=== PATIENT | female | born 1945 | race Two or more races ===

== ENCOUNTER → 2017-06-02 | Outpatient (CLI) | payer MEDICARE, MEDICAID ==
[~2017-06-02] VITALS: Ht 146.1 cm; Wt 55.5 kg
[~2017-06-02] MED LIST: ASPI-556 PO; CALC1TAB90 PO; CARV25 PO; DIGO125T71 PO; FISH OIL 1,2001 CA1 PO; FURO40TA5 PO; GABA-318 PO; GLIM2TAB3 PO; METF500T4 PO; PANT40TA25 PO; POTA8TAB4 PO; ROSU40 PO; SPIR25TA4 PO; VALS160T2 GT; VITAD400 PO; [UNRECOGNIZED DRUG - CODE] OP
[2017-06-02 13:27] VITALS: BP 144/66
== END | disposition home or self-care (01) ==
LOC: SRCNTR 13:14
PROVIDERS: ATTEND Internal Medicine Clinical Cardiac Electrophysiology
DX: Z45.02 Encounter for adjustment and management of automatic implantable cardiac defibrillator (principal); I11.0 Hypertensive heart disease with heart failure; I50.9 Heart failure, unspecified; E78.5 Hyperlipidemia, unspecified; E11.9 Type 2 diabetes mellitus without complications; Z79.82 Long term (current) use of aspirin
CPT/HCPCS: G0463

== ENCOUNTER → 2017-06-06 | Outpatient (CLI) | payer MEDICARE, MEDICAID ==
[~2017-06-06] VITALS: Ht 144.8 cm; Wt 54.8 kg
[2017-06-06 11:16] VITALS: BP 153/53
== END | disposition home or self-care (01) ==
LOC: SRCNTR 09:56
PROVIDERS: ATTEND Internal Medicine Clinical Cardiac Electrophysiology
DX: Z09 Encounter for follow-up examination after completed treatment for conditions other than malignant neoplasm (principal); Z95.810 Presence of automatic (implantable) cardiac defibrillator
CPT/HCPCS: G0463

== ENCOUNTER → 2017-06-13 | Outpatient (CLI) | payer MEDICARE, MEDICAID ==
[~2017-06-13] VITALS: Ht 144.8 cm; Wt 55.0 kg
[2017-06-13 10:37] VITALS: BP 123/59
== END | disposition home or self-care (01) ==
LOC: SRCNTR 10:35
PROVIDERS: ATTEND Internal Medicine Clinical Cardiac Electrophysiology
DX: Z09 Encounter for follow-up examination after completed treatment for conditions other than malignant neoplasm (principal); Z95.810 Presence of automatic (implantable) cardiac defibrillator
CPT/HCPCS: G0463

== ENCOUNTER → 2017-06-20 | Outpatient (CLI) | payer MEDICARE, MEDICAID, OTHER ==
[~2017-06-20] VITALS: Ht 144.8 cm; Wt 54.5 kg
[~2017-06-20] MED LIST changes: +ALEN70TA48 PO; +ATOR40TA28 PO; +CARV6 PO; +FERG325 PO; +LINA5TAB PO; +METF10002 PO; +OMEP20 PO; +SACU1TAB PO; +VITAD1000 PO
[2017-06-20 14:32] VITALS: BP 142/57
== END | disposition home or self-care (01) ==
LOC: SRCNTR 14:25
PROVIDERS: ATTEND Internal Medicine Clinical Cardiac Electrophysiology
DX: Z09 Encounter for follow-up examination after completed treatment for conditions other than malignant neoplasm (principal); E11.9 Type 2 diabetes mellitus without complications; E78.00 Pure hypercholesterolemia, unspecified; I10 Essential (primary) hypertension; Z79.82 Long term (current) use of aspirin; Z95.0 Presence of cardiac pacemaker; Z98.890 Other specified postprocedural states
CPT/HCPCS: G0463

== ENCOUNTER → 2017-06-27 | Outpatient (CLI) | payer MEDICARE, OTHER ==
[~2017-06-27] VITALS: Ht 144.8 cm; Wt 54.5 kg
[~2017-06-27] MED LIST changes: -CARV25 PO; -DIGO125T71 PO; -GLIM2TAB3 PO; -METF500T4 PO; -PANT40TA25 PO; -POTA8TAB4 PO; -ROSU40 PO; -VALS160T2 GT; -VITAD400 PO; -[UNRECOGNIZED DRUG - CODE] OP
[2017-06-27 14:02] VITALS: BP 121/58
== END | disposition home or self-care (01) ==
LOC: SRCNTR 13:45
PROVIDERS: ATTEND Internal Medicine Clinical Cardiac Electrophysiology
DX: Z09 Encounter for follow-up examination after completed treatment for conditions other than malignant neoplasm (principal); Z95.810 Presence of automatic (implantable) cardiac defibrillator
CPT/HCPCS: G0463

== ENCOUNTER → 2017-07-11 | Outpatient (CLI) | payer MEDICARE, OTHER ==
[~2017-07-11] VITALS: Ht 144.8 cm; Wt 54.0 kg
[2017-07-11 10:56] VITALS: BP 140/66
== END | disposition home or self-care (01) ==
LOC: SRCNTR 10:38
PROVIDERS: ATTEND Internal Medicine Clinical Cardiac Electrophysiology
DX: Z45.02 Encounter for adjustment and management of automatic implantable cardiac defibrillator (principal); I11.0 Hypertensive heart disease with heart failure; I50.9 Heart failure, unspecified; E78.5 Hyperlipidemia, unspecified; E11.9 Type 2 diabetes mellitus without complications; Z90.49 Acquired absence of other specified parts of digestive tract
CPT/HCPCS: 93289; G0463; 93288

== ENCOUNTER → 2017-07-18 | Outpatient (CLI) | payer MEDICARE, OTHER ==
[2017-07-18 13:58] VITALS: BP 110/60
== END | disposition home or self-care (01) ==
LOC: SRCNTR 13:48
PROVIDERS: ATTEND Internal Medicine Clinical Cardiac Electrophysiology
DX: Z09 Encounter for follow-up examination after completed treatment for conditions other than malignant neoplasm (principal); I11.0 Hypertensive heart disease with heart failure; I50.9 Heart failure, unspecified; E11.9 Type 2 diabetes mellitus without complications; E78.5 Hyperlipidemia, unspecified; Z95.810 Presence of automatic (implantable) cardiac defibrillator
CPT/HCPCS: G0463

== ENCOUNTER → 2017-07-31 | Outpatient (CLI) | payer MEDICARE, OTHER ==
[2017-07-31 09:11] LABS: BASOPHILS # (AUTO) 0.03 K/uL (0.00-0.20); BASOPHILS % (AUTO) 0.5 % (0.0-2.0); EOSINOPHILS # (AUTO) 0.09 K/uL (0.00-0.70); EOSINOPHILS % (AUTO) 1.32 % (1.0-6.0); HEMATOCRIT 37.1 % (36-46); HEMOGLOBIN 12.4 g/dL (12.0-16.0); LYMPHOCYTES # (AUTO) 2.4 K/uL (1.0-4.8); LYMPHOCYTES % (AUTO) 34.3 % (22.0-44.0); MEAN CORPUSCULAR HEMOGLOBIN 32.2 pg (26.0-34.0); MEAN CORPUSCULAR HGB CONC 33.4 G/dL (31.0-37.0); MEAN CORPUSCULAR VOLUME 97 fL (80-100); MONOCYTES # (AUTO) 0.7 K/uL (0.1-1.0); NEUTROPHILS # (AUTO) 3.7 K/uL (1.8-7.7); NEUTROPHILS % (AUTO) 53.9 % (40.0-70.0); PLATELET COUNT (AUTO) 210 K/uL (150-450); RED BLOOD CELL COUNT(AUTO) 3.84 MIL/uL (4.00-5.20)
[2017-07-31 09:26] LABS: ALANINE AMINOTRANSFERASE 26 U/L (12-78); ALBUMIN 3.9 g/dL (3.4-5.0); ALKALINE PHOSPHATASE 45 U/L (46-116); ANION GAP 4 mmol/L (8-16); ASPARTATE AMINOTRANSFERASE 19 U/L (15-37); BILIRUBIN,TOTAL 0.3 mg/dL (0.1-1.0); CALCIUM, TOTAL 8.5 mg/dL (8.8-10.5); CARBON DIOXIDE 30 mmol/L (22-29); CHLORIDE 104 mmol/L (98-107); CHOL/HDL RATIO 2.8 (3.9-5.7); CHOLESTEROL 128 mg/dL (131-200); CREATININE 0.86 mg/dL (0.60-1.30); GLOMERULAR FILTR. RATE CALC > 60 mL/min (>60); GLUCOSE,RANDOM 108 mg/dL (70-110); HDL CHOLESTEROL 45 mg/dL (40-60); LDL CHOL (CALC.) 65 mg/dL (0-130); POTASSIUM 4.6 mmol/L (3.5-5.1); SODIUM SERUM 138 mmol/L (136-145); TOTAL PROTEIN, SERUM 7.3 g/dL (6.4-8.2); TRIGLYCERIDES 92 mg/dL (15-150); UREA NITROGEN, BLOOD 13 mg/dL (7-18)
== END | disposition home or self-care (01) ==
LOC: LABPV 08:26
PROVIDERS: ATTEND Internal Medicine Cardiovascular Disease
DX: I11.0 Hypertensive heart disease with heart failure (principal); I50.9 Heart failure, unspecified; E11.65 Type 2 diabetes mellitus with hyperglycemia; E55.9 Vitamin D deficiency, unspecified

== ENCOUNTER → 2017-08-15 | Outpatient (CLI) | payer MEDICARE, OTHER ==
[~2017-08-15] VITALS: Ht 144.8 cm; Wt 68.0 kg
[2017-08-15 14:22] VITALS: BP 111/52
== END | disposition home or self-care (01) ==
LOC: SRCNTR 14:10
PROVIDERS: ATTEND Internal Medicine Clinical Cardiac Electrophysiology
DX: I11.0 Hypertensive heart disease with heart failure (principal); I50.9 Heart failure, unspecified; E11.9 Type 2 diabetes mellitus without complications; E78.5 Hyperlipidemia, unspecified; Z79.82 Long term (current) use of aspirin; Z95.810 Presence of automatic (implantable) cardiac defibrillator
CPT/HCPCS: 93288; G0463

== ENCOUNTER → 2018-01-25 | Outpatient (CLI) | payer MEDICARE, OTHER ==
[~2018-01-25] MED LIST changes: -METF10002 PO; +METF10004 PO
[2018-01-25 11:25] LABS: BASOPHILS % (AUTO) 0.3 % (0.0-2.0); EOSINOPHILS % (AUTO) 1.6 % (1.0-6.0); HEMATOCRIT 37.7 % (36-46); HEMOGLOBIN 12.8 g/dL (12.0-16.0); LYMPHOCYTES # (AUTO) 2.7 K/uL (1.0-4.8); LYMPHOCYTES % (AUTO) 35.8 % (22.0-44.0); MEAN CORPUSCULAR HEMOGLOBIN 31.4 pg (26.0-34.0); MEAN CORPUSCULAR HGB CONC 33.9 G/dL (31.0-37.0); MEAN CORPUSCULAR VOLUME 93 fL (80-100); MONOCYTES # (AUTO) 0.8 K/uL (0.1-1.0); NEUTROPHILS # (AUTO) 3.9 K/uL (1.8-7.7); NEUTROPHILS % (AUTO) 52.3 % (40.0-70.0); PLATELET COUNT (AUTO) 202 K/uL (150-450); RED BLOOD CELL COUNT(AUTO) 4.07 MIL/uL (4.00-5.20); RED CELL DISTRIBUTION WIDTH 14.1 % (11.5-14.5)
[2018-01-25 11:49] LABS: CHOL/HDL RATIO 3.1 (3.9-5.7); CREATININE 1.12 mg/dL (0.60-1.30); POTASSIUM 4.9 mmol/L (3.5-5.1); TOTAL PROTEIN, SERUM 7.8 g/dL (6.4-8.2)
[2018-01-25 12:08] LABS: BILIRUBIN,TOTAL 0.4 mg/dL (0.1-1.0)
== END | disposition home or self-care (01) ==
LOC: LABPV 09:48
PROVIDERS: ATTEND Internal Medicine Cardiovascular Disease
DX: I11.0 Hypertensive heart disease with heart failure (principal); I50.9 Heart failure, unspecified; E11.8 Type 2 diabetes mellitus with unspecified complications; E55.9 Vitamin D deficiency, unspecified

== ENCOUNTER → 2018-05-23 | Outpatient (CLI) | payer MEDICARE, OTHER ==
[~2018-05-23] MED LIST changes: -SPIR25TA4 PO; +SPIR25TA6 PO
[2018-05-23 10:03] LABS: BASOPHILS % (AUTO) 0.6 % (0.0-2.0); EOSINOPHILS % (AUTO) 1.8 % (1.0-6.0); HEMATOCRIT 36.8 % (36-46); HEMOGLOBIN 12.2 g/dL (12.0-16.0); LYMPHOCYTES # (AUTO) 2.3 K/uL (1.0-4.8); LYMPHOCYTES % (AUTO) 36.2 % (22.0-44.0); MEAN CORPUSCULAR HEMOGLOBIN 30.6 pg (26.0-34.0); MEAN CORPUSCULAR VOLUME 93 fL (80-100); MONOCYTES # (AUTO) 0.9 K/uL (0.1-1.0); MONOCYTES % (AUTO) 13.6 % (2.0-9.0); NEUTROPHILS % (AUTO) 47.8 % (40.0-70.0); PLATELET COUNT (AUTO) 211 K/uL (150-450); RED BLOOD CELL COUNT(AUTO) 3.97 MIL/uL (4.00-5.20)
[2018-05-23 10:26] LABS: ALBUMIN 3.7 g/dL (3.4-5.0); BILIRUBIN,TOTAL 0.4 mg/dL (0.1-1.0); CALCIUM, TOTAL 8.7 mg/dL (8.8-10.5); CHOL/HDL RATIO 3.5 (3.9-5.7); CREATININE 1.11 mg/dL (0.60-1.30); FREE T4 (FREE THYROXINE) 0.91 ng/dL (0.76-1.46); MAGNESIUM 2.5 mg/dL (1.80-2.40); POTASSIUM 5.1 mmol/L (3.5-5.1); THYROID STIMULATING HORMONE 1.05 uIU/mL (0.36-3.74); TOTAL PROTEIN, SERUM 7.5 g/dL (6.4-8.2)
[2018-05-23 10:32] LABS: HEMOGLOBIN A1C 6.7 % (4.5-6.2)
== END | disposition home or self-care (01) ==
LOC: LABPV 08:47
PROVIDERS: ATTEND Internal Medicine Cardiovascular Disease
DX: I11.0 Hypertensive heart disease with heart failure (principal); E11.8 Type 2 diabetes mellitus with unspecified complications; I50.9 Heart failure, unspecified; E55.9 Vitamin D deficiency, unspecified; D56.5 Hemoglobin E-beta thalassemia
CPT/HCPCS: 82306; 83036; 83735; 84439; 84443

== ENCOUNTER → 2018-08-14 | Outpatient (CLI) | payer MEDICARE, OTHER ==
[~2018-08-14] VITALS: Ht 144.8 cm; Wt 56.5 kg
[~2018-08-14] MED LIST changes: +METF-446 PO; -METF10004 PO
[2018-08-14 10:36] VITALS: BP 138/60
== END | disposition home or self-care (01) ==
LOC: SRCNTR 10:25
PROVIDERS: ATTEND Internal Medicine Clinical Cardiac Electrophysiology
DX: Z09 Encounter for follow-up examination after completed treatment for conditions other than malignant neoplasm (principal); I11.0 Hypertensive heart disease with heart failure; I50.9 Heart failure, unspecified; E78.5 Hyperlipidemia, unspecified; E11.9 Type 2 diabetes mellitus without complications; E78.00 Pure hypercholesterolemia, unspecified
CPT/HCPCS: G0463

== ENCOUNTER → 2018-08-28 | Outpatient (CLI) | payer MEDICARE, OTHER ==
[2018-08-28 10:57] LABS: BASOPHILS % (AUTO) 0.5 % (0.0-2.0); EOSINOPHILS % (AUTO) 1.6 % (1.0-6.0); HEMATOCRIT 36.7 % (36-46); HEMOGLOBIN 12.5 g/dL (12.0-16.0); LYMPHOCYTES # (AUTO) 2.3 K/uL (1.0-4.8); LYMPHOCYTES % (AUTO) 34.1 % (22.0-44.0); MEAN CORPUSCULAR HEMOGLOBIN 30.6 pg (26.0-34.0); MEAN CORPUSCULAR HGB CONC 33.9 G/dL (31.0-37.0); MEAN CORPUSCULAR VOLUME 90 fL (80-100); MONOCYTES # (AUTO) 0.7 K/uL (0.1-1.0); MONOCYTES % (AUTO) 9.9 % (2.0-9.0); NEUTROPHILS # (AUTO) 3.7 K/uL (1.8-7.7); NEUTROPHILS % (AUTO) 53.9 % (40.0-70.0); PLATELET COUNT (AUTO) 215 K/uL (150-450); RED BLOOD CELL COUNT(AUTO) 4.07 MIL/uL (4.00-5.20); RED CELL DISTRIBUTION WIDTH 14.8 % (11.5-14.5)
[2018-08-28 11:19] LABS: BILIRUBIN,TOTAL 0.3 mg/dL (0.1-1.0); CALCIUM, TOTAL 8.1 mg/dL (8.8-10.5); CHOL/HDL RATIO 2.9 (3.9-5.7); CREATININE 0.96 mg/dL (0.60-1.30); FREE T4 (FREE THYROXINE) 0.96 ng/dL (0.76-1.46); MAGNESIUM 2.2 mg/dL (1.80-2.40); POTASSIUM 4.5 mmol/L (3.5-5.1); THYROID STIMULATING HORMONE 0.58 uIU/mL (0.36-3.74); TOTAL PROTEIN, SERUM 7.6 g/dL (6.4-8.2)
[2018-08-28 11:23] LABS: HEMOGLOBIN A1C 6.5 % (4.5-6.2)
== END | disposition home or self-care (01) ==
LOC: LABPV 09:12
PROVIDERS: ATTEND Internal Medicine Cardiovascular Disease
DX: E55.9 Vitamin D deficiency, unspecified (principal); D56.5 Hemoglobin E-beta thalassemia; I11.0 Hypertensive heart disease with heart failure; I50.9 Heart failure, unspecified; E11.8 Type 2 diabetes mellitus with unspecified complications
CPT/HCPCS: 82306; 83036; 83735; 84439; 84443

== ENCOUNTER → 2018-12-31 | Outpatient (CLI) | payer MEDICARE, OTHER ==
[~2018-12-31] MED LIST changes: +ALEN70TA10 PO; -ALEN70TA48 PO; -GABA-318 PO; +GABA600T10 PO
[2018-12-31 10:13] LABS: POTASSIUM 4.3 mmol/L (3.5-5.1)
== END | disposition home or self-care (01) ==
LOC: LABPV 08:34
PROVIDERS: ATTEND Internal Medicine
DX: R25.2 Cramp and spasm (principal)
CPT/HCPCS: 83735; 84132

== ENCOUNTER → 2019-04-08 | Outpatient (CLI) | payer MEDICARE, OTHER ==
[2019-04-08 10:46] LABS: BASOPHILS % (AUTO) 0.5 % (0.0-2.0); EOSINOPHILS % (AUTO) 1.5 % (1.0-6.0); HEMATOCRIT 36.7 % (36-46); LYMPHOCYTES # (AUTO) 1.8 K/uL (1.0-4.8); LYMPHOCYTES % (AUTO) 28.2 % (22.0-44.0); MEAN CORPUSCULAR HEMOGLOBIN 30.6 pg (26.0-34.0); MEAN CORPUSCULAR HGB CONC 32.8 G/dL (31.0-37.0); MEAN CORPUSCULAR VOLUME 93 fL (80-100); MONOCYTES # (AUTO) 0.8 K/uL (0.1-1.0); MONOCYTES % (AUTO) 12.4 % (2.0-9.0); NEUTROPHILS # (AUTO) 3.6 K/uL (1.8-7.7); NEUTROPHILS % (AUTO) 57.4 % (40.0-70.0); PLATELET COUNT (AUTO) 199 K/uL (150-450); RED BLOOD CELL COUNT(AUTO) 3.94 MIL/uL (4.00-5.20); RED CELL DISTRIBUTION WIDTH 14.6 % (11.5-14.5)
[2019-04-08 11:10] LABS: ALBUMIN 3.7 g/dL (3.4-5.0); BILIRUBIN,TOTAL 0.5 mg/dL (0.1-1.0); CALCIUM, TOTAL 8.5 mg/dL (8.8-10.5); CHOL/HDL RATIO 3.4 (3.9-5.7); FREE T4 (FREE THYROXINE) 0.95 ng/dL (0.76-1.46); MAGNESIUM 2.2 mg/dL (1.80-2.40); POTASSIUM 4.5 mmol/L (3.5-5.1); THYROID STIMULATING HORMONE 0.54 uIU/mL (0.36-3.74); TOTAL PROTEIN, SERUM 7.4 g/dL (6.4-8.2)
[2019-04-08 11:15] LABS: HEMOGLOBIN A1C 6.5 % (4.5-6.2)
== END | disposition home or self-care (01) ==
LOC: LABPV 09:15
PROVIDERS: ATTEND Internal Medicine Cardiovascular Disease
DX: E55.9 Vitamin D deficiency, unspecified (principal); I11.0 Hypertensive heart disease with heart failure; I50.9 Heart failure, unspecified; D56.5 Hemoglobin E-beta thalassemia; E11.8 Type 2 diabetes mellitus with unspecified complications
CPT/HCPCS: 82306; 83036; 83735; 84439; 84443

== ENCOUNTER → 2019-07-09 | Outpatient (CLI) | payer MEDICARE, OTHER ==
[~2019-07-09] MED LIST changes: +CHOL100018 PO; -VITAD1000 PO
[2019-07-09 09:43] LABS: BASOPHILS % (AUTO) 0.6 % (0.0-2.0); EOSINOPHILS % (AUTO) 1.7 % (1.0-6.0); HEMATOCRIT 36.7 % (36-46); HEMOGLOBIN 12.3 g/dL (12.0-16.0); LYMPHOCYTES # (AUTO) 1.8 K/uL (1.0-4.8); LYMPHOCYTES % (AUTO) 33.1 % (22.0-44.0); MEAN CORPUSCULAR HEMOGLOBIN 30.1 pg (26.0-34.0); MEAN CORPUSCULAR HGB CONC 33.4 G/dL (31.0-37.0); MEAN CORPUSCULAR VOLUME 90 fL (80-100); MONOCYTES # (AUTO) 0.5 K/uL (0.1-1.0); MONOCYTES % (AUTO) 9.5 % (2.0-9.0); NEUTROPHILS # (AUTO) 3.1 K/uL (1.8-7.7); NEUTROPHILS % (AUTO) 55.1 % (40.0-70.0); PLATELET COUNT (AUTO) 212 K/uL (150-450); RED BLOOD CELL COUNT(AUTO) 4.08 MIL/uL (4.00-5.20); RED CELL DISTRIBUTION WIDTH 14.9 % (11.5-14.5)
[2019-07-09 09:52] LABS: HEMOGLOBIN A1C 6.9 % (4.5-6.2)
[2019-07-09 10:02] LABS: ALANINE AMINOTRANSFERASE 24 U/L (12-78); ALBUMIN 3.9 g/dL (3.4-5.0); ALKALINE PHOSPHATASE 52 U/L (46-116); ANION GAP 6 mmol/L (8-16); ASPARTATE AMINOTRANSFERASE 24 U/L (15-37); BILIRUBIN,TOTAL 0.5 mg/dL (0.1-1.0); CALCIUM, TOTAL 8.5 mg/dL (8.8-10.5); CARBON DIOXIDE 29 mmol/L (22-29); CHLORIDE 104 mmol/L (98-107); CHOLESTEROL 143 mg/dL (131-200); CREATININE 0.91 mg/dL (0.60-1.30); FREE T4 (FREE THYROXINE) 1.13 ng/dL (0.76-1.46); GLUCOSE,RANDOM 88 mg/dL (70-110); HDL CHOLESTEROL 47 mg/dL (40-60); LDL CHOL (CALC.) 78 mg/dL (0-130); POTASSIUM 4.3 mmol/L (3.5-5.1); SODIUM SERUM 139 mmol/L (136-145); THYROID STIMULATING HORMONE 0.99 uIU/mL (0.36-3.74); TOTAL PROTEIN, SERUM 7.5 g/dL (6.4-8.2); TRIGLYCERIDES 92 mg/dL (15-150); UREA NITROGEN, BLOOD 16 mg/dL (7-18)
[2019-07-09 10:05] LABS: GLOMERULAR FILTR. RATE CALC > 60 mL/min (>60)
== END | disposition home or self-care (01) ==
LOC: LABPV 08:41
PROVIDERS: ATTEND Internal Medicine Cardiovascular Disease
DX: E55.9 Vitamin D deficiency, unspecified (principal); I11.0 Hypertensive heart disease with heart failure; I50.9 Heart failure, unspecified; E11.8 Type 2 diabetes mellitus with unspecified complications; D56.5 Hemoglobin E-beta thalassemia
CPT/HCPCS: 82306; 83036; 83735; 84439; 84443

== ENCOUNTER → 2020-05-14 | Outpatient (CLI) | payer MEDICARE, OTHER ==
[~2020-05-14] MED LIST changes: -ALEN70TA10 PO; +ALEN70TA65 PO
[2020-05-14 10:13] LABS: BASOPHILS % (AUTO) 0.6 % (0.0-2.0); EOSINOPHILS % (AUTO) 1.9 % (1.0-6.0); HEMATOCRIT 32.1 % (36-46); HEMOGLOBIN 10.7 g/dL (12.0-16.0); LYMPHOCYTES # (AUTO) 2.2 K/uL (1.0-4.8); LYMPHOCYTES % (AUTO) 41.2 % (22.0-44.0); MEAN CORPUSCULAR HEMOGLOBIN 28.5 pg (26.0-34.0); MEAN CORPUSCULAR HGB CONC 33.3 G/dL (31.0-37.0); MEAN CORPUSCULAR VOLUME 85 fL (80-100); MONOCYTES # (AUTO) 0.7 K/uL (0.1-1.0); MONOCYTES % (AUTO) 12.8 % (2.0-9.0); NEUTROPHILS # (AUTO) 2.4 K/uL (1.8-7.7); NEUTROPHILS % (AUTO) 43.5 % (40.0-70.0); PLATELET COUNT (AUTO) 203 K/uL (150-450); RED BLOOD CELL COUNT(AUTO) 3.77 MIL/uL (4.00-5.20); RED CELL DISTRIBUTION WIDTH 15.9 % (11.5-14.5)
[2020-05-14 10:24] LABS: HEMOGLOBIN A1C 6.3 % (3.8-5.6)
[2020-05-14 10:36] LABS: BILIRUBIN,TOTAL 0.4 mg/dL (0.1-1.0); CALCIUM, TOTAL 8.6 mg/dL (8.8-10.5); CHOL/HDL RATIO 2.8 (3.9-5.7); CREATININE 0.93 mg/dL (0.60-1.30); FREE T4 (FREE THYROXINE) 1.18 ng/dL (0.76-1.46); MAGNESIUM 2.1 mg/dL (1.80-2.40); POTASSIUM 4.7 mmol/L (3.5-5.1); THYROID STIMULATING HORMONE 0.83 uIU/mL (0.36-3.74); TOTAL PROTEIN, SERUM 7.5 g/dL (6.4-8.2)
== END | disposition home or self-care (01) ==
LOC: LABPV 08:04
PROVIDERS: ATTEND Internal Medicine Cardiovascular Disease
DX: I11.0 Hypertensive heart disease with heart failure (principal); I50.9 Heart failure, unspecified; E55.9 Vitamin D deficiency, unspecified; D56.5 Hemoglobin E-beta thalassemia; E11.8 Type 2 diabetes mellitus with unspecified complications
CPT/HCPCS: 82306; 83036; 83735; 84439; 84443

== ENCOUNTER → 2020-11-17 | Outpatient (CLI) | payer MEDICARE, OTHER ==
[2020-11-17 10:56] LABS: BASOPHILS % (AUTO) 0.6 % (0.0-2.0); EOSINOPHILS % (AUTO) 1.4 % (1.0-6.0); HEMATOCRIT 32.4 % (36-46); HEMOGLOBIN 10.6 g/dL (12.0-16.0); LYMPHOCYTES # (AUTO) 2.1 K/uL (1.0-4.8); LYMPHOCYTES % (AUTO) 35.8 % (22.0-44.0); MEAN CORPUSCULAR HEMOGLOBIN 28.1 pg (26.0-34.0); MEAN CORPUSCULAR HGB CONC 32.8 G/dL (31.0-37.0); MEAN CORPUSCULAR VOLUME 86 fL (80-100); MONOCYTES # (AUTO) 0.6 K/uL (0.1-1.0); MONOCYTES % (AUTO) 10.4 % (2.0-9.0); NEUTROPHILS # (AUTO) 3.1 K/uL (1.8-7.7); NEUTROPHILS % (AUTO) 51.8 % (40.0-70.0); PLATELET COUNT (AUTO) 232 K/uL (150-450); RED BLOOD CELL COUNT(AUTO) 3.78 MIL/uL (4.00-5.20); RED CELL DISTRIBUTION WIDTH 16.8 % (11.5-14.5)
[2020-11-17 11:01] LABS: HEMOGLOBIN A1C 5.9 % (3.8-5.6)
[2020-11-17 11:12] LABS: ALBUMIN 3.8 g/dL (3.4-5.0); BILIRUBIN,TOTAL 0.3 mg/dL (0.1-1.0); CALCIUM, TOTAL 9.2 mg/dL (8.8-10.5); CHOL/HDL RATIO 2.9 (3.9-5.7); CREATININE 0.94 mg/dL (0.60-1.30); MAGNESIUM 2.3 mg/dL (1.80-2.40); POTASSIUM 4.4 mmol/L (3.5-5.1); THYROID STIMULATING HORMONE 0.72 uIU/mL (0.36-3.74); TOTAL PROTEIN, SERUM 7.3 g/dL (6.4-8.2)
== END | disposition home or self-care (01) ==
LOC: LABPV 07:53
PROVIDERS: ATTEND Internal Medicine Cardiovascular Disease
DX: I11.0 Hypertensive heart disease with heart failure (principal); I50.9 Heart failure, unspecified; E11.8 Type 2 diabetes mellitus with unspecified complications; E55.9 Vitamin D deficiency, unspecified; D56.5 Hemoglobin E-beta thalassemia
CPT/HCPCS: 82306; 83036; 83735; 84443

== ENCOUNTER → 2021-04-20 | Outpatient (CLI) | payer MEDICARE, OTHER ==
[2021-04-20 15:35] LABS: BASOPHILS % (AUTO) 0.5 % (0.0-2.0); EOSINOPHILS % (AUTO) 1.5 % (1.0-6.0); HEMATOCRIT 32.7 % (36-46); HEMOGLOBIN 10.5 g/dL (12.0-16.0); LYMPHOCYTES # (AUTO) 2.6 K/uL (1.0-4.8); LYMPHOCYTES % (AUTO) 38.5 % (22.0-44.0); MEAN CORPUSCULAR HEMOGLOBIN 27.2 pg (26.0-34.0); MEAN CORPUSCULAR HGB CONC 32.2 G/dL (31.0-37.0); MEAN CORPUSCULAR VOLUME 84 fL (80-100); MONOCYTES # (AUTO) 0.6 K/uL (0.1-1.0); MONOCYTES % (AUTO) 9.2 % (2.0-9.0); NEUTROPHILS # (AUTO) 3.3 K/uL (1.8-7.7); NEUTROPHILS % (AUTO) 50.3 % (40.0-70.0); PLATELET COUNT (AUTO) 295 K/uL (150-450); RED BLOOD CELL COUNT(AUTO) 3.87 MIL/uL (4.00-5.20); RED CELL DISTRIBUTION WIDTH 16.4 % (11.5-14.5)
[2021-04-20 16:03] LABS: ALBUMIN 4.1 g/dL (3.4-5.0); BILIRUBIN,TOTAL 0.4 mg/dL (0.1-1.0); CALCIUM, TOTAL 9.3 mg/dL (8.8-10.5); CHOL/HDL RATIO 2.4 (3.9-5.7); CREATININE 1.1 mg/dL (0.60-1.30); POTASSIUM 4.5 mmol/L (3.5-5.1); THYROID STIMULATING HORMONE 0.49 uIU/mL (0.36-3.74)
== END | disposition home or self-care (01) ==
LOC: LABMN 14:45
PROVIDERS: ATTEND Internal Medicine
DX: Z12.11 Encounter for screening for malignant neoplasm of colon (principal); E11.69 Type 2 diabetes mellitus with other specified complication; E11.65 Type 2 diabetes mellitus with hyperglycemia; N18.2 Chronic kidney disease, stage 2 (mild); D64.9 Anemia, unspecified; E78.5 Hyperlipidemia, unspecified; M81.0 Age-related osteoporosis without current pathological fracture
CPT/HCPCS: 80053; 80061; 82043; 82306; 82570; 83036; 84443; 85025

== ENCOUNTER → 2021-05-12 | Outpatient (CLI) | payer MEDICARE, OTHER ==
[2021-05-12 09:51] LABS: IRON, SERUM 29 mcg/dL (50-175)
[2021-05-12 10:31] LABS: FERRITIN 6 ng/mL (8-252)
[2021-05-12 10:55] LABS: FOLATE SERUM 15.1 ng/mL (5.4-)
== END | disposition home or self-care (01) ==
LOC: LABPV 08:18
PROVIDERS: ATTEND Internal Medicine
DX: D64.9 Anemia, unspecified (principal)
CPT/HCPCS: 82607; 82728; 82746; 83540

== ENCOUNTER → 2022-04-04 | Outpatient (CLI) | payer MEDICARE, OTHER ==
[2022-04-04 07:44] LABS: BASOPHILS % (AUTO) 0.7 % (0.0-2.0); EOSINOPHILS % (AUTO) 2.1 % (1.0-6.0); HEMATOCRIT 35.2 % (36-46); LYMPHOCYTES % (AUTO) 35.7 % (22.0-44.0); MEAN CORPUSCULAR HEMOGLOBIN 31.4 pg (26.0-34.0); MEAN CORPUSCULAR HGB CONC 34.1 G/dL (31.0-37.0); MEAN CORPUSCULAR VOLUME 92 fL (80-100); MONOCYTES # (AUTO) 0.7 K/uL (0.1-1.0); NEUTROPHILS # (AUTO) 2.8 K/uL (1.8-7.7); NEUTROPHILS % (AUTO) 49.5 % (40.0-70.0); PLATELET COUNT (AUTO) 204 K/uL (150-450); RED BLOOD CELL COUNT(AUTO) 3.82 MIL/uL (4.00-5.20)
[2022-04-04 08:08] LABS: ALANINE AMINOTRANSFERASE 19 U/L (12-78); ALBUMIN 3.6 g/dL (3.4-5.0); ALKALINE PHOSPHATASE 52 U/L (46-116); ANION GAP 3 mmol/L (8-16); ASPARTATE AMINOTRANSFERASE 15 U/L (15-37); BILIRUBIN,TOTAL 0.4 mg/dL (0.1-1.0); CALCIUM, TOTAL 8.8 mg/dL (8.8-10.5); CARBON DIOXIDE 30 mmol/L (22-29); CHLORIDE 99 mmol/L (98-107); CHOL/HDL RATIO 2.9 (3.9-5.7); CHOLESTEROL 126 mg/dL (131-200); CREATININE 0.89 mg/dL (0.60-1.30); FREE T4 (FREE THYROXINE) 1.07 ng/dL (0.76-1.46); GLUCOSE,RANDOM 77 mg/dL (70-110); HDL CHOLESTEROL 44 mg/dL (40-60); LDL CHOL (CALC.) 63 mg/dL (0-130); POTASSIUM 4.4 mmol/L (3.5-5.1); SODIUM SERUM 132 mmol/L (136-145); THYROID STIMULATING HORMONE 0.96 uIU/mL (0.36-3.74); TRIGLYCERIDES 95 mg/dL (15-150); UREA NITROGEN, BLOOD 12 mg/dL (7-18)
[2022-04-04 08:09] LABS: B-TYPE NATRIURETIC PEPTIDE 80 pg/mL (0-100)
[2022-04-04 08:11] LABS: GLOMERULAR FILTR. RATE CALC > 60 mL/min (>60)
== END | disposition home or self-care (01) ==
LOC: LABMN 07:18
PROVIDERS: ATTEND Internal Medicine Cardiovascular Disease
DX: I11.0 Hypertensive heart disease with heart failure (principal); I50.9 Heart failure, unspecified; E11.8 Type 2 diabetes mellitus with unspecified complications; E78.00 Pure hypercholesterolemia, unspecified; D56.5 Hemoglobin E-beta thalassemia; E55.9 Vitamin D deficiency, unspecified
CPT/HCPCS: 80053; 80061; 82306; 83036; 83735; 83880; 84439; 84443; 84480; 85025

== ENCOUNTER → 2022-10-10 | Outpatient (CLI) | payer MEDICARE, OTHER ==
[2022-10-10 08:57] LABS: BASOPHILS % (AUTO) 0.4 % (0.0-2.0); EOSINOPHILS % (AUTO) 2.5 % (1.0-6.0); HEMATOCRIT 36.5 % (36-46); HEMOGLOBIN 12.4 g/dL (12.0-16.0); LYMPHOCYTES # (AUTO) 1.7 K/uL (1.0-4.8); LYMPHOCYTES % (AUTO) 28.7 % (22.0-44.0); MEAN CORPUSCULAR HEMOGLOBIN 32.2 pg (26.0-34.0); MEAN CORPUSCULAR HGB CONC 33.9 G/dL (31.0-37.0); MEAN CORPUSCULAR VOLUME 95 fL (80-100); MONOCYTES # (AUTO) 0.6 K/uL (0.1-1.0); MONOCYTES % (AUTO) 10.4 % (2.0-9.0); NEUTROPHILS # (AUTO) 3.5 K/uL (1.8-7.7); PLATELET COUNT (AUTO) 195 K/uL (150-450); RED BLOOD CELL COUNT(AUTO) 3.85 MIL/uL (4.00-5.20); RED CELL DISTRIBUTION WIDTH 13.8 % (11.5-14.5)
[2022-10-10 09:32] LABS: ALBUMIN 3.8 g/dL (3.4-5.0); BILIRUBIN,TOTAL 0.5 mg/dL (0.1-1.0); CALCIUM, TOTAL 8.9 mg/dL (8.8-10.5); CHOL/HDL RATIO 2.8 (3.9-5.7); CREATININE 1.02 mg/dL (0.60-1.30); THYROID STIMULATING HORMONE 0.65 uIU/mL (0.36-3.74); TOTAL PROTEIN, SERUM 7.3 g/dL (6.4-8.2)
[2022-10-10 09:46] LABS: % IRON SATURATION 24.4 % (22-44)
== END | disposition home or self-care (01) ==
LOC: LABMN 08:27
PROVIDERS: ATTEND Internal Medicine
DX: E11.69 Type 2 diabetes mellitus with other specified complication (principal); E78.5 Hyperlipidemia, unspecified; D64.9 Anemia, unspecified
CPT/HCPCS: 80053; 80061; 82043; 82570; 83036; 83540; 83550; 84443; 85025

== ENCOUNTER → 2023-06-15 | Outpatient (CLI) | payer MEDICARE, OTHER ==
[2023-06-15 10:18] LABS: BASOPHILS % (AUTO) 0.5 % (0.0-2.0); EOSINOPHILS % (AUTO) 1.3 % (1.0-6.0); HEMOGLOBIN 12.2 g/dL (12.0-16.0); LYMPHOCYTES # (AUTO) 1.6 K/uL (1.0-4.8); LYMPHOCYTES % (AUTO) 27.8 % (22.0-44.0); MEAN CORPUSCULAR HEMOGLOBIN 32.6 pg (26.0-34.0); MEAN CORPUSCULAR HGB CONC 33.8 G/dL (31.0-37.0); MEAN CORPUSCULAR VOLUME 96 fL (80-100); MONOCYTES # (AUTO) 0.6 K/uL (0.1-1.0); MONOCYTES % (AUTO) 10.3 % (2.0-9.0); NEUTROPHILS # (AUTO) 3.4 K/uL (1.8-7.7); NEUTROPHILS % (AUTO) 60.1 % (40.0-70.0); PLATELET COUNT (AUTO) 204 K/uL (150-450); RED BLOOD CELL COUNT(AUTO) 3.74 MIL/uL (4.00-5.20); WHITE BLOOD COUNT (AUTO) 5.6 K/uL (4.5-11.0)
[2023-06-15 10:22] LABS: HEMOGLOBIN A1C 5.8 % (3.8-5.6)
[2023-06-15 10:32] LABS: B-TYPE NATRIURETIC PEPTIDE 156 pg/mL (0-100)
[2023-06-15 10:43] LABS: ALANINE AMINOTRANSFERASE 16 U/L (12-78); ALBUMIN 3.8 g/dL (3.4-5.0); ALKALINE PHOSPHATASE 47 U/L (46-116); ANION GAP 9 mmol/L (8-16); ASPARTATE AMINOTRANSFERASE 17 U/L (15-37); BILIRUBIN,TOTAL 0.4 mg/dL (0.1-1.0); CALCIUM, TOTAL 8.9 mg/dL (8.8-10.5); CARBON DIOXIDE 28 mmol/L (22-29); CHLORIDE 102 mmol/L (98-107); CHOL/HDL RATIO 2.7 (3.9-5.7); CHOLESTEROL 131 mg/dL (131-200); CREATININE 0.82 mg/dL (0.60-1.30); FREE T4 (FREE THYROXINE) 1.07 ng/dL (0.76-1.46); GLOMERULAR FILTR. RATE CALC > 60 mL/min (>60); GLUCOSE,RANDOM 95 mg/dL (70-110); HDL CHOLESTEROL 48 mg/dL (40-60); LDL CHOL (CALC.) 65 mg/dL (0-130); POTASSIUM 4.4 mmol/L (3.5-5.1); SODIUM SERUM 139 mmol/L (136-145); THYROID STIMULATING HORMONE 0.91 uIU/mL (0.36-3.74); TOTAL PROTEIN, SERUM 7.2 g/dL (6.4-8.2); TRIGLYCERIDES 91 mg/dL (15-150); UREA NITROGEN, BLOOD 14 mg/dL (7-18)
== END | disposition home or self-care (01) ==
LOC: LABMN 09:47
PROVIDERS: ATTEND Internal Medicine Cardiovascular Disease
DX: I11.0 Hypertensive heart disease with heart failure (principal); I50.9 Heart failure, unspecified; E78.00 Pure hypercholesterolemia, unspecified; E11.8 Type 2 diabetes mellitus with unspecified complications; E55.9 Vitamin D deficiency, unspecified; D56.5 Hemoglobin E-beta thalassemia
CPT/HCPCS: 80053; 80061; 82306; 83036; 83735; 83880; 84439; 84443; 84480; 85025